=== PATIENT | female | born 1990 | race Caucasian/White ===

== ENCOUNTER 2023-11-30 13:55 | Inpatient (IN) ==
[2023-11-30] MEDS ORDERED: Lidocaine 1% VIAL 10 MG/ML 30 ML VIAL INJ PRN (14:43)
[2023-11-30] MEDS: Lactated Ringers 1000 ml BAG 1,000 ML IV SCH ×2 (15:00→17:15)
[2023-11-30] MEDS ORDERED: Phenylephrine 40 mcg/mL 10mL (400mcg) SYRINGE IV PUSH PRN ×2 (15:26)
[2023-11-30] MEDS ORDERED: Lactated Ringers 1000 ml BAG 1,000 ML IV ONE (15:26)
[2023-11-30 15:31] LABS: ABS Eosinophils 0.1 10^3/uL (0.0-0.5); ABS Monocytes 0.6 10^3/uL (0.0-0.9); ABS Neutrophils 6.6 10^3/uL (1.5-7.6); ABS Nucleated RBC 0.01 10^3/ul; Eosinophil % 0.6 %; Hemoglobin 12.9 g/dL (11.5-14.3); Lymphocyte % 29.5 %; Mean Corpuscular Hemoglobin 30.4 pg (27-33); Mean Corpuscular Volume 89.5 fL (80-97); Mean Platelet Volume 9.7 fL (7.5-11.2); Nucleated Red Blood Cells % 0.1 %/100WBC (0.0-0.8); Platelet Count 154 10^3/uL (150-450); Red Blood Count 4.25 10^6/uL (3.63-4.92); Red Cell Distribution Width 14.4 % (12-17); White Blood Count 10.3 10^3/uL (3.8-11.8)
[2023-11-30] MEDS: OBEPIDURAL (200 ML) 200 ML EPIDURAL SCH (15:45)
[2023-11-30] MEDS: Lactated Ringers 1000 ml BAG 1,000 ML IV ONE (15:58)
[2023-11-30 16:04] LABS: Urine Benzodiazepine Screen None Detected (None Detect); Urine Cannabinoids Screen None Detected (None Detect); Urine Opiates Screen None Detected (None Detect)
[2023-11-30 16:48] LABS: Urine Appearance Clear; Urine Bilirubin Negative (Negative); Urine Blood Negative (Negative); Urine Color Yellow; Urine Glucose Negative (Negative); Urine Ketones 2+ (Negative); Urine Nitrite Negative (Negative); Urine Protein Negative (Negative); Urine Specific Gravity 1.013 (1.002-1.030); Urine Urobilinogen Negative (Negative)
[2023-11-30] MEDS ORDERED: Dibucaine 1% OINT 28.35 GM TUBE PR PRN (20:22)
[2023-11-30] MEDS ORDERED: Methylergonovine 0.2 mg AMPULE 1 ml AMP IM ONE (20:22)
[2023-11-30] MEDS ORDERED: Glycerin ADULT 2.4 gm SUPP PR PRN (20:22)
[2023-11-30] MEDS ORDERED: Witch Hazel PAD JAR TOPICAL PRN (20:22)
[2023-11-30] MEDS ORDERED: ceFAZolin 2 GM in NS PREMIX 2 GM/100 ML BAG IVPB ONE (20:24)
[2023-11-30] MEDS ORDERED: Oxytocin in LR 20,000 MILLI.UNIT/1,000 ML BAG IV SCH (20:25)
[2023-11-30] MEDS: Methylergonovine 0.2 mg AMPULE 1 ml AMP ONE (20:56)
[2023-11-30] MEDS: Oxytocin in LR 20,000 MILLI.UNIT/1,000 ML BAG IV ONE (20:56)
[2023-11-30] MEDS: ceFAZolin 2 GM PREMIX 2 GM/50 ML BAG IVPB ONE (21:26)
[2023-12-01 09:18] LABS: ABS Eosinophils 0.1 10^3/uL (0.0-0.5); ABS Lymphocytes 2.6 10^3/uL (1.0-4.8); ABS Monocytes 0.8 10^3/uL (0.0-0.9); ABS Neutrophils 8.2 10^3/uL (1.5-7.6); Eosinophil % 0.7 %; Hematocrit 35.9 % (35-45); Lymphocyte % 22.3 %; Mean Corpuscular Hemoglobin 29.9 pg (27-33); Mean Corpuscular Hgb Conc 33.5 g/dL (31-36); Mean Corpuscular Volume 89.3 fL (80-97); Mean Platelet Volume 9.3 fL (7.5-11.2); Platelet Count 146 10^3/uL (150-450); Red Blood Count 4.02 10^6/uL (3.63-4.92); Red Cell Distribution Width 14.4 % (12-17); White Blood Count 11.7 10^3/uL (3.8-11.8)
[2023-12-01] MEDS: Buffered Lidocaine 1% SYRIN 1 ml INTRADERM ONE (14:46)
[2023-12-01] MEDS: Calamine LOTION BTL TOPICAL SCH (22:29)
[2023-12-02 08:13] VITALS: BP 106/57
== END 2023-12-02 13:45 | disposition home or self-care (01) | DRG 560 ==
LOC: MCHOBOUT 13:55 → MCHOB 14:50